=== PATIENT | female | born 1955 | race Caucasian/White ===

== ENCOUNTER → 2017-07-15 | Day surgery (SDC) | payer OTHER ==
[~2017-07-15] MED LIST: Dexamethasone 4 MG/ML 5 ML MDV ONE; Enalapril 5 MG Tab PO SCH; HYDROmorphone 2 MG Tab PO PRN; Iopamidol 408 MG/ML 50 ML SDV ONE; Ketorolac 30 MG/ML SDV ONE; Lactated Ringers 1,000 ML IV SCH; Midazolam 1 MG/ML 2 ML SDV ONE; Ondansetron 4 MG/2 ML SDV ONE; Propofol 200 MG/20 ML SDV ONE; Rocuronium 10 MG/ML 10 ML Syringe ONE; Sertraline 50 MG Tab PO SCH; Sodium Chloride 0.9% 10 ML Syringe FLUSH PRN; Sodium Chloride 0.9% 2.5 ML Syringe FLUSH PRN; Succinylcholine/Normal Saline 200 MG/10 ML Syringe ONE; buPROPion 150 MG Tab.SR PO SCH; cefTRIAXone 1 GM in Premix Bag 1 BAG IV SCH; diphenhydrAMINE 50 MG/ML SDV ONE; fentaNYL 100 MCG/2 ML SDV ONE
--- NOTE | 2017-08-06 16:06 | PCM.PREANE ---
Preanesthetic Assessment - Anesthesia/Transfusion/Family Hx Anesthesia History: Prior Anesthesia Without Reaction Family History of Anesthesia Reaction: No Intubation History: Unknown - Review of Systems Other: Reports: None - Physical Assessment NPO Status Date: 08/06/17 NPO Status Time: 14:30 (sip of Mt Dew food at 0830) ASA Class: 2E Mental Status: Alert & Oriented x3 Airway Class: Mallampati = 1 Dentition: Reports: Normal Dentition, Partial (front tooth) Thyro-Mental Finger Breadths: 3 Mouth Opening Finger Breadths: 3 ROM/Head Extension: Full - Allergies Allergies/Adverse Reactions: Allergies Allergy/AdvReac Type Severity Reaction Status Date / Time indomethacin Allergy Rash Verified 08/06/17 15:56 meloxicam Allergy Rash Verified 08/06/17 15:55 methocarbamol Allergy Rash Verified 08/06/17 15:55 orphenadrine Allergy Shaking Verified 08/06/17 15:56 - Blood Blood Available: No - Acknowledgements Anesthesia Type Planned: General Anesthesia Pt an Appropriate Candidate for the Planned Anesthesia: Yes Alternatives and Risks of Anesthesia Discussed w Pt/Guardian: Yes Pt/Guardian Understands and Agrees with Anesthesia Plan: Yes PreAnesthesia Questionnaire Cardiovascular History: Reports: High Cholesterol, Hypertension Gastrointestinal History: Reports: GERD Psychiatric History: Reports: Anxiety, Depression Other Psychiatric History: claustrophobia Other Dermatologic History: skin lupus - Past Surgical History Female Surgical History: Reports: Section (x3), Tubal Ligation Neurological Surgical History: Reports: Lumbar Spine Musculoskeletal Surgical History: Reports: Knee Replacement (Left) - SUBSTANCE USE Smoking Status *Q: Former Smoker (quit 1 yr ago smoked for "many years") Tobacco Use Within Last Twelve Months: Cigarettes Second Hand Smoke Exposure: No Days Per Week of Alcohol Use: 0 Recreational Drug Use History: No - HOME MEDS Home Medications: Home Meds Sertraline [Zoloft] 100 mg PO DAILY 07/17/14 [History] buPROPion [Wellbutrin XL] 300 mg PO DAILY 07/17/14 [History] Enalapril Maleate [Enalapril Maleate] 5 mg PO DAILY 08/06/17 [History] - CURRENT (IN HOUSE) MEDS Current Meds: Current Medications Ceftriaxone Sodium/Dextrose 1 (gm/ Premix) 50 mls @ 100 mls/hr IV ONETIME SHERWIN Lactated Ringer's (Ringers, Lactated) 1,000 mls @ 50 mls/hr IV ASDIRECTED SHERWIN Tobramycin 120 mg/ Sodium (Chloride) 53 mls @ 106 mls/hr IV Q12H SHERWIN Sodium Chloride (Saline Flush) 10 ml FLUSH ASDIRECTED PRN PRN Reason: Keep Vein Open Sodium Chloride (Saline Flush) 2.5 ml FLUSH ASDIRECTED PRN PRN Reason: Keep Vein Open
--- NOTE | 2017-08-06 18:40 | PCM.POSTAN ---
POST ANESTHESIA ASSESSMENT - MENTAL STATUS Mental Status: Alert, Oriented - RESPIRATORY Respiratory Status: Respiratory Rate WNL, Airway Patent, O2 Saturation Stable - CARDIOVASCULAR CV Status: Pulse Rate WNL, Blood Pressure Stable - GASTROINTESTINAL GI Status: No Symptoms - PAIN Pain Score: 0 - POST OP HYDRATION Hydration Status: Adequate & Stable
--- NOTE | 2017-08-06 22:16 | PCM48HPAN ---
Post Anesthesia Note - EVALUATION WITHIN 48HRS OF ANESTHETIC Vital Signs in Normal Range: Yes Patient Participated in Evaluation: Yes Respiratory Function Stable: Yes Airway Patent: Yes Cardiovascular Function Stable: Yes Hydration Status Stable: Yes Pain Control Satisfactory: Yes Nausea and Vomiting Control Satisfactory: Yes Mental Status Recovered: Yes
--- NOTE | 2017-08-06 22:52 | OR ---
SURGEON: Ryan Saul M.D. DATE OF PROCEDURE: 08/06/2017 PREOPERATIVE DIAGNOSIS: Obstructive right lower ureteral stones, 6 mm and 3-4 mm, with hydronephrosis and urinary tract infection. POSTOPERATIVE DIAGNOSIS: Obstructive right lower ureteral stones, 6 mm and 3-4 mm, with hydronephrosis and urinary tract infection. PROCEDURE: Ureteroscopy, stones removal, and double-J stent placement. DESCRIPTION OF PROCEDURE: The patient was given general anesthesia, placed in dorsal lithotomy position, prepped and draped in sterile drapes. Cystourethroscopy was done. The bladder had the appearance of acute cystitis. The patient had already received both Rocephin and tobramycin on arrival 3 hours prior to the procedure. The guidewire was then advanced in the right ureter alongside the stone all the way up into the renal pelvis. The lower ureter was dilated using the UroMax II balloon dilator to approximately 15-Czech. The Zero-tip basket was used to extract both stones. With that done, a 7-Czech 26 centimeter double-J stent was placed over the guidewire. The guidewire was removed. The bladder was emptied, and the string at the end of the stent was taped to the outside of the penis. TRUONG / RICCI /[id number]
--- NOTE | 2017-08-08 06:24 | DISCH ---
DATE OF DISCHARGE: 08/07/2017 PRIMARY CARE PHYSICIAN: None PCP HISTORY/HOSPITAL COURSE: The patient is a 61-year-old. She was seen through the emergency room with sudden onset of right flank pain. She had a UA that was strongly suggestive of UTI. Urine culture is pending. She had a white blood count that was normal. A CT scan that showed two obstructive stones in the right lower ureter. She was admitted to the hospital, started on IV antibiotics, received both Rocephin and tobramycin, was taken to the operating room where she underwent ureteroscopy and removal of stones plus double-J stent placement. She was kept in overnight for additional IV antibiotics and was sent home on the first postop day which is 08/07/2017. At the time of discharge, her vital signs are stable. She is afebrile. She is doing well. She will come to the office this coming Saturday to have her double-J stent removed by pulling the string out. TRUONG WYNNE /[id number]
--- NOTE | 2017-08-08 10:25 | CR ---
EXAMINATION: Ureteroscopy HISTORY: Nephrolithiasis COMPARISON: Same day TECHNIQUE: 3 fluoroscopic images provided FINDINGS/IMPRESSION: Operative control films demonstrate placement of a right nephroureteral stent.
== END ==
LOC: EDSTATUS 12:53 → MW.SDS 15:24 → INTOOBSV 08-06 15:24 → MW.MS 08-06 15:24 → MW.ICU 08-06 15:24 → UNDOADMOB 08-06 15:24 → MW.OBCHECK 08-06 15:24 → UNDODISOB 08-07 11:15 → EDSTATUS 08-20 15:20
PROVIDERS: ATTEND Urology
DX: N13.6 Pyonephrosis (principal); E78.00 Pure hypercholesterolemia, unspecified; I10 Essential (primary) hypertension; K21.9 Gastro-esophageal reflux disease without esophagitis; F41.9 Anxiety disorder, unspecified; F32.9 Major depressive disorder, single episode, unspecified; F40.240 Claustrophobia; L93.1 Subacute cutaneous lupus erythematosus; Z98.51 Tubal ligation status; Z88.1 Allergy status to other antibiotic agents; Z88.8 Allergy status to other drugs, medicaments and biological substances; Z96.652 Presence of left artificial knee joint; Z87.891 Personal history of nicotine dependence; Z79.899 Other long term (current) drug therapy; N13.2 Hydronephrosis with renal and ureteral calculous obstruction; N39.0 Urinary tract infection, site not specified
CPT/HCPCS: 00910; 36415; 74176; 74176-26; 76000; 76000-26; 80053; 81001; 85025; 96361; 96374; 96375; 99284; 99284-25; A9270-GY; C1874; J0696; J1100; J1200; J1885; J2250; J2270; J2405; J2704; J3010; J3260; J7040; J7050; J7120; Q9966

== ENCOUNTER 2017-08-06 11:49 | Emergency (ER) | payer BC, OTHER ==
[2017-08-06] MEDS ORDERED: Sodium Chloride 0.9% 10 ML Syringe FLUSH PRN (12:24)
[2017-08-06] MEDS ORDERED: Morphine 2 MG/ML Syringe IVPUSH ONE (12:24)
[2017-08-06] MEDS ORDERED: Ondansetron 4 MG/2 ML SDV IVPUSH ONE (12:24)
[2017-08-06] MEDS ORDERED: Sodium Chloride 0.9% 2.5 ML Syringe FLUSH PRN (12:24)
[2017-08-06] MEDS ORDERED: Ketorolac 30 MG/ML SDV IVPUSH ONE (12:24)
[2017-08-06] MEDS ORDERED: Sodium Chloride 0.9% 1,000 ML IV ONE ×2 (12:24)
--- NOTE | 2017-08-06 12:27 | EDM.PDOC ---
ED HPI GENERAL MEDICAL PROBLEM - General Chief Complaint: Flank Pain Stated Complaint: BACK PAIN Time Seen by Provider: 08/06/17 12:27 Source of Information: Reports: Patient History Limitations: Reports: No Limitations - History of Present Illness INITIAL COMMENTS - FREE TEXT/NARRATIVE: HISTORY AND PHYSICAL: []61-year-old female presents with flank and back pain She has history of having renal stones in the past History of Present Illness: []Pain is rated as 9/10 Patient has had a tubal ligation in the past Review of Systems: As per history of present illness and below otherwise all systems reviewed and negative. Past medical history: As per history of present illness and as reviewed below otherwise noncontributory. Surgical history: As per history of present illness and as reviewed below otherwise noncontributory. Social history: No reported history of drug or alcohol abuse. Family history: As per history of present illness and as reviewed below otherwise noncontributory. Physical exam: Alert and oriented female who is obviously in some pain. 3 and questions appropriately in full sentences without shortness of breath HEENT: Atraumatic, normocehpalic, pupils reactive, negative for conjunctival pallor or scleral icterus, mucous membranes moist, throat clear, neck supple, nontender, trachea midline. Lungs: Clear to auscultation, breath sounds equal bilaterally, chest non tender. Heart: S1S2, regular, negative for clicks, rubs, or JVD. Abdomen: Soft, nondistended, nontender. Negative for masses or hepatossplenmegaly. Negative for costovertebral tenderness. Pelvis: Stable nontender. Genitourinary: Deferred. Rectal: Deferred Extremities: Atraumatic, negative for cords or calf pain. Neurovascular unremarkable. Neuro: Awake, alert, oriented. Cranial nerves II through XII unremarkable. Cerebellum unremarkable. Motor and sensory unremarkable throughout. Exam nonfocal. Discussed this case with Dr. Saul local urologist, who is requesting the patient be sent to his clinic. Discussed with the patient and her that I had spoken with Dr. Saul and he wishes to see her at the clinic now. Diagnostics: [CBC CMP UA abdominal pelvis CT without] Therapeutics: [IV fluids morphine IV Toradol IV Zofran IV ] Impression: []2 renal stones obstructing UTI Plan: [Discharged to clinic Follow-up with Dr. Shahin today] Definitive disposition and diagnosis as appropriate pending reevaluation and review of above. Right Flank Pain Score (Numeric/FACES): 7 - Related Data Allergies Allergy/AdvReac Type Severity Reaction Status Date / Time No Known Allergies Allergy Verified 10/19/13 10:48 Home Meds: Home Meds Sertraline [Zoloft] 100 mg PO DAILY 07/17/14 [History] buPROPion [Wellbutrin XL] 300 mg PO DAILY 07/17/14 [History] Enalapril Maleate [Enalapril Maleate] 5 mg PO DAILY 08/06/17 [History] Social & Family History - Tobacco Use Smoking Status *Q: Former Smoker Years of Tobacco use: 40 Used Tobacco, but Quit: Yes Month Tobacco Last Used: - Alcohol Use Days Per Week of Alcohol Use: 0 - Recreational Drug Use Recreational Drug Use: No ED ROS GENERAL - Review of Systems Review Of Systems: ROS reveals no pertinent complaints other than HPI. ED EXAM, GI/ABD - Physical Exam Exam: See Below (see dictation) Course - Vital Signs Last Recorded V/S: Last Vital Signs Temp 35.1 C L 08/06/17 12:16 Pulse 89 08/06/17 12:16 Resp 18 08/06/17 12:16 BP 131/74 08/06/17 12:16 Pulse Ox 100 08/06/17 12:16 - Orders/Labs/Meds Orders: Active Orders 24 hr Category Date Time Status Sodium Chloride 0.9% [Saline Flush] Med 08/06/17 12:24 Active 10 ml FLUSH ASDIRECTED PRN Sodium Chloride 0.9% [Saline Flush] Med 08/06/17 12:24 Active 2.5 ml FLUSH ASDIRECTED PRN Saline Lock Insert [OM.PC] Stat Oth 08/06/17 12:25 Ordered Medication Orders Sodium Chloride (Saline Flush) 10 ml FLUSH ASDIRECTED PRN PRN Reason: Keep Vein Open Last Admin: 08/06/17 12:31 Dose: 10 ml Sodium Chloride (Saline Flush) 2.5 ml FLUSH ASDIRECTED PRN PRN Reason: Keep Vein Open Last Admin: 08/06/17 12:31 Dose: 2.5 ml Labs: Laboratory Tests 08/06/17 08/06/17 08/06/17 Range/Units 12:20 12:20 12:20 WBC 10.02 (4.0-11.0) K/uL RBC 4.81 (4.30-5.90) M/uL Hgb 14.6 (12.0-16.0) g/dL Hct 44.0 (36.0-46.0) % MCV 91.5 (80.0-98.0) fL MCH 30.4 (27.0-32.0) pg MCHC 33.2 (31.0-37.0) g/dL RDW Std Deviation 48.2 (28.0-62.0) fl RDW Coeff of Esther 14 (11.0-15.0) % Plt Count 218 (150-400) K/uL MPV 10.00 (7.40-12.00) fL Add Manual Diff YES Neutrophils % (Manual) 82 H (48.0-80.0) % Lymphocytes % (Manual) 14 L (16.0-40.0) % Monocytes % (Manual) 4 (0.0-15.0) % Nucleated RBC % 0.0 /100WBC Absolute Seg Neuts 8.2 H (1.4-5.7) Lymphocytes # (Manual) 1.4 (0.6-2.4) Monocytes # (Manual) 0.4 (0.0-0.8) Nucleated RBCs # 0 K/uL Sodium 139 (136-146) mmol/L Potassium 4.1 (3.5-5.1) mmol/L Chloride 106 (98-110) mmol/L Carbon Dioxide 22 (21-31) mmol/L BUN 17 (6.0-23.0) mg/dL Creatinine 1.0 (0.6-1.5) mg/dL Est Cr Clr Drug Dosing 45.71 mL/min Estimated GFR (MDRD) 56.7 ml/min Glucose 102 (60-110) mg/dL Calcium 9.8 (8.8-10.8) mg/dL Total Bilirubin 0.5 (0.1-1.5) mg/dL AST 15 (5-40) IU/L ALT 20 (8-54) IU/L Alkaline Phosphatase 89 (40-150) Total Protein 7.2 (6.0-8.0) g/dL Albumin 4.3 (3.5-5.0) g/dL Globulin 2.9 (2.0-3.5) g/dL Albumin/Globulin Ratio 1.5 (1.3-2.8) Urine Color YELLOW Urine Appearance CLEAR Urine pH 6.5 (5.0-8.0) Ur Specific [place] 1.020 (1.001-1.035) Urine Protein 30 (NEGATIVE) mg/dL Urine Glucose (UA) NEGATIVE (NEGATIVE) mg/dL Urine Ketones NEGATIVE (NEGATIVE) mg/dL Urine Occult Blood LARGE H (NEGATIVE) Urine Nitrite POSITIVE H (NEGATIVE) Urine Bilirubin NEGATIVE (NEGATIVE) Urine Urobilinogen 0.2 (<2.0) EU/dL Ur Leukocyte Esterase LARGE (NEGATIVE) Urine RBC 5-7 (0-2/HPF) Urine WBC TO NUMEROUS TO COUNT H (0-5/HPF) Ur Epithelial Cells OCCASIONAL (NONE-FEW) Urine Bacteria 4+ H (NEGATIVE) Meds: Medications Generic Name Dose Route Start Last Admin Trade Name Tamara PRN Reason Stop Dose Admin Sodium Chloride 10 ml 08/06/17 12:24 08/06/17 12:31 Saline Flush FLUSH 10 ml ASDIRECTED PRN Administration Keep Vein Open Sodium Chloride 2.5 ml 08/06/17 12:24 08/06/17 12:31 Saline Flush FLUSH 2.5 ml ASDIRECTED PRN Administration Keep Vein Open Discontinued Medications Generic Name Dose Route Start Last Admin Trade Name Tamara PRN Reason Stop Dose Admin Sodium Chloride 1,000 mls @ 999 mls/hr 08/06/17 12:24 08/06/17 12:29 Normal Saline IV 08/06/17 13:24 999 mls/hr STAT ONE Administration Sodium Chloride 1,000 mls @ 999 mls/hr 08/06/17 12:24 08/06/17 13:47 Normal Saline IV 08/06/17 13:24 999 mls/hr STAT ONE Administration Ketorolac Tromethamine 30 mg 08/06/17 12:24 08/06/17 12:30 Toradol IVPUSH 08/06/17 12:25 30 mg ONETIME ONE Administration Morphine Sulfate 2 mg 08/06/17 12:24 08/06/17 12:30 Morphine IVPUSH 08/06/17 12:25 2 mg ONETIME ONE Administration Ondansetron HCl 4 mg 08/06/17 12:24 08/06/17 12:30 Zofran IVPUSH 08/06/17 12:25 4 mg ONETIME ONE Administration Departure - Departure Time of Disposition: 13:52 Disposition: Home, Self-Care 01 Condition: Good Clinical Impression: UTI, Urinary tract infectious disease, Kidney stone - Discharge Information Instructions: Kidney Stones, [id number], Flank Pain, [id number] Referrals: PCP,None [Primary Care Provider] - Forms: ED Department Discharge Additional Instructions: The following information is given to patients seen in the emergency department who are being discharged to home. This information is to outline your options for follow-up care. We provide all patients seen in our emergency department with a follow-up referral. The need for follow-up, as well as the timing and circumstances, are variable depending upon the specifics of your emergency department visit. If you don't have a primary care physician on staff, we will provide you with a referral. We always advise you to contact your personal physician following an emergency department visit to inform them of the circumstance of the visit and for follow-up with them and/or the need for any referrals to a consulting specialist. The emergency department will also refer you to a specialist when appropriate. This referral assures that you have the opportunity for followup care with a specialist. All of these measure are taken in an effort to provide you with optimal care, which includes your followup. Under all circumstances we always encourage you to contact your private physician who remains a resource for coordinating your care. When calling for followup care, please make the office aware that this follow-up is from your recent emergency room visit. If for any reason you are refused follow-up, please contact the [facility] emergency department at and asked to speak to the emergency department charge nurse. Please present to the clinic for Dr. Saul to see you - My Orders Last 24 Hours: My Active Orders 08/06/17 12:24 Sodium Chloride 0.9% [Saline Flush] 10 ml FLUSH ASDIRECTED PRN Sodium Chloride 0.9% [Saline Flush] 2.5 ml FLUSH ASDIRECTED PRN 08/06/17 12:25 Saline Lock Insert [OM.PC] Stat - Assessment/Plan Last 24 Hours: My Active Orders 08/06/17 12:24 Sodium Chloride 0.9% [Saline Flush] 10 ml FLUSH ASDIRECTED PRN Sodium Chloride 0.9% [Saline Flush] 2.5 ml FLUSH ASDIRECTED PRN 08/06/17 12:25 Saline Lock Insert [OM.PC] Stat
--- NOTE | 2017-08-06 13:43 | CT ---
CT of the abdomen and pelvis without contrast. HISTORY: Pain TECHNIQUE: Axial CT images were obtained of the abdomen and pelvis without contrast. Coronal and sagi ttal reconstructions obtained. FINDINGS: The lung bases are clear, no pleural effusion. Calcified granuloma within the right lung base. The liver, spleen, adrenal glands, and pancreas appear unremarkable for noncontrast examination. The gallbladder appears normal. There is no bulky retroperitoneal lymphadenopathy. No abdominal ascites. There is a 5 x 6 mm obstructing stone within the distal left ureter near the ureterovesicular junctio n. There is a smaller more proximal stone noted. There is moderate right-sided hydronephrosis with mu ltiple nonobstructing nephrolithiasis bilaterally. Peripelvic cysts noted within the left kidney. The large and small bowel are normal in caliber without evidence of obstruction. The appendix appears normal. Diverticulosis without evidence of diverticulitis. There is no bulky pelvic lymphadenopathy. No free fluid. No free air. The urinary bladder appears normal. Bilateral posterior fusion hardware noted at L4-L5 with grade 1 anterolisthesis. No suspicious osseou s abnormalities identified. IMPRESSION: 1. There are 2 obstructing stones within the distal right ureter, measuring up to 5 x 6 mm, with mode rate proximal hydronephrosis. 2. Nonobstructing nephrolithiasis bilaterally. 3. Mild diverticulosis without evidence of diverticulitis.
== END 2017-08-06 14:12 | disposition home or self-care (01) ==
LOC: MW.ED 11:49
DX: N13.2 Hydronephrosis with renal and ureteral calculous obstruction (principal); N39.0 Urinary tract infection, site not specified; Z79.899 Other long term (current) drug therapy; Z87.891 Personal history of nicotine dependence
CPT/HCPCS: 36415; 74176; 80053; 81001; 85025; 96361; 96374; 96375; 99284; J1885; J2270; J2405; J7040

== ENCOUNTER 2019-09-08 11:16 | Emergency (ER) | payer OTHER ==
[2019-09-08] MEDS ORDERED: Acetaminophen/oxyCODONE 325-5 MG Tab PO ONE ×2 (11:29→13:05)
[2019-09-08] MEDS ORDERED: Ibuprofen 800 MG Tab PO ONE (11:31)
--- NOTE | 2019-09-08 12:38 | CR ---
Right shoulder: 2 views of the right shoulder obtained. Comparison: No prior shoulder exam. Anterior subcoracoid dislocation is noted. Osteopenia seen. Degenerative change is noted within the cervical spine. Impression: 1. Dislocated right shoulder. 2. Other findings as noted above. Diagnostic code #3 This report was dictated in [place] Standard Time
--- NOTE | 2019-09-08 12:38 | CR ---
Right humerus: Single view of the right humerus was obtained. No discrete fracture or other abnormality is seen within the humerus. Dislocated shoulder is again noted. Impression: 1. Dislocated right shoulder. No additional abnormality is appreciated on single right humerus study. Diagnostic code #2 This report was dictated in [place] Standard Time
[2019-09-08] MEDS ORDERED: Lidocaine 1% 10 ML MDV INJECT ONE (12:52)
[2019-09-08] MEDS ORDERED: Lidocaine 1% 50 ML MDV ONE (13:05)
[2019-09-08] MEDS ORDERED: Diazepam 5 MG Tab PO ONE (13:06)
--- NOTE | 2019-09-08 14:08 | CR ---
Right shoulder: Single AP view of the right shoulder was obtained. Comparison: Previous shoulder study performed earlier on the same day (12:04 PM). Previous dislocation has been reduced. No additional abnormality is seen on this 1 view study. Impression: 1. Reduced right shoulder dislocation. Diagnostic code #1 This report was dictated in [place] Standard Time
--- NOTE | 2019-09-08 14:44 | EDM.PDOC ---
ED HPI GENERAL MEDICAL PROBLEM - General Chief Complaint: Upper Extremity Injury/Pain Stated Complaint: AMBULANCE Time Seen by Provider: 09/08/19 11:21 Right Upper Arm Pain Score (Numeric/FACES): 10 - Related Data Allergies Allergy/AdvReac Type Severity Reaction Status Date / Time indomethacin Allergy Rash Verified 09/08/19 11:24 meloxicam Allergy Rash Verified 09/08/19 11:24 methocarbamol Allergy Rash Verified 09/08/19 11:24 orphenadrine Allergy Shaking Verified 09/08/19 11:24 Home Meds: Home Meds Sertraline [Zoloft] 100 mg PO DAILY 07/17/14 [History] buPROPion [Wellbutrin XL] 300 mg PO DAILY 07/17/14 [History] Enalapril Maleate 5 mg PO DAILY 08/06/17 [History] Aspirin 81 mg PO DAILY 09/08/19 [History] Past Medical History HEENT History: Reports: None Cardiovascular History: Reports: High Cholesterol, Hypertension Respiratory History: Reports: None Gastrointestinal History: Reports: GERD Genitourinary History: Reports: None 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: Neurological History: Reports: None Psychiatric History: Reports: Anxiety, Depression Other Psychiatric History: claustrophobia Endocrine/Metabolic History: Reports: None Hematologic History: Reports: None Immunologic History: Reports: None Oncologic (Cancer) History: Reports: None Other Dermatologic History: skin lupus - Infectious Disease History Infectious Disease History: Reports: None - Past Surgical History Head Surgeries/Procedures: Reports: None Female Surgical History: Reports: Section, Tubal Ligation Neurological Surgical History: Reports: Lumbar Spine Musculoskeletal Surgical History: Reports: Knee Replacement Social & Family History - Family History Family Medical History: Noncontributory - Tobacco Use Smoking Status *Q: Former Smoker Used Tobacco, but Quit: Yes Month/Year Tobacco Last Used: 2015 - Caffeine Use Caffeine Use: Reports: Coffee, Soda - Recreational Drug Use Recreational Drug Use: No Review of Systems - Review of Systems Review Of Systems: See Below ED EXAM, GENERAL - Physical Exam Exam: See Below Free Text/Narrative:: intact sensation over the right deltoid region, intact sensation in the right upper extremity strength intact at the wrist and digits (r) General Appearance: Alert, No Apparent Distress Nose: Normal Inspection Throat/Mouth: Normal Inspection Head: Atraumatic, Normocephalic Neck: Supple, Non-Tender, Full Range of Motion Respiratory/Chest: Lungs Clear, Normal Breath Sounds, No Accessory Muscle Use Cardiovascular: Normal Peripheral Pulses, Regular Rate, Rhythm, No Edema, No JVD , No Murmur, No Rub Peripheral Pulses: 3+: Radial (L), Radial (R) (Female) Exam: Deferred Rectal (Female) Exam: Deferred Back Exam: Normal Inspection, Full Range of Motion. No: Vertebral Tenderness Extremities: Normal Inspection, Other (tender to palpation over the shoulder, limited rom due to pain) ED TRAUMA EXTREMITY PROCEDURES - Joint Reduction Right Shoulder Sedation: Hematoma/Fracture Block Local Anesthesia - Lidocaine (Xylocaine): 1% Plain Local Anesthetic Volume: Other (10cc) Pre-Procedure NV Status: Normal Post-Procedure NV Status: Normal Technique: Other (external rotation ) Number of Attempts: 1 Post-Reduction Imaging: Completely Reduced Joint Reduction Complications: Yes Course - Vital Signs Last Recorded V/S: Last Vital Signs Temp 96.0 F L 09/08/19 11:22 Pulse 65 09/08/19 15:30 Resp 15 09/08/19 15:30 BP 95/56 L 09/08/19 15:30 Pulse Ox 97 09/08/19 15:30 - Orders/Labs/Meds Meds: Medications Discontinued Medications Generic Name Dose Route Start Last Admin Trade Name Tamara PRN Reason Stop Dose Admin Diazepam 5 mg 09/08/19 13:06 09/08/19 13:15 Valium. PO 09/08/19 13:07 5 mg ONETIME ONE Administration Ibuprofen 800 mg 09/08/19 11:31 09/08/19 12:22 Motrin PO 09/08/19 11:32 800 mg ONETIME ONE Administration Lidocaine HCl 10 ml 09/08/19 12:52 09/08/19 15:28 Xylocaine 1% INJECT 09/08/19 12:53 10 ml ONETIME ONE Administration Lidocaine HCl Confirm 09/08/19 13:05 09/08/19 15:28 Xylocaine 1% Administered 09/08/19 13:06 Not Given Dose 50 ml .ROUTE .STK-MED ONE Oxycodone/Acetaminophen 1 tab 09/08/19 11:29 09/08/19 12:23 Percocet 325-5 Mg PO 09/08/19 11:30 1 tab ONETIME ONE Administration Oxycodone/Acetaminophen 1 tab 09/08/19 13:05 09/08/19 13:14 Percocet 325-5 Mg PO 09/08/19 13:06 1 tab ONETIME ONE Administration - Re-Assessments/Exams Free Text/Narrative Re-Assessment/Exam: 09/08/19 15:41 Shoulder was relocated without any immediate complications confirmed via x-ray. Was a little extra sleepy after the Valium and Percocet now she is fully arousable without hypoxia or any distress. She will follow-up with Ortho as an outpatient she will wear the sling for no more than two to three weeks. return precautions discussed with the patient. acetaminophen as needed for pain. Full strength and sensation in the RUE after reduction (elbow strength intact, wrist strngth intact, fnger strength intact- snesation intact throughout including deltoid 09/08/19 15:48 Departure - Departure Time of Disposition: 15:44 Disposition: Home, Self-Care 01 Clinical Impression: Shoulder dislocation - Discharge Information *PRESCRIPTION DRUG MONITORING PROGRAM REVIEWED*: Not Applicable *COPY OF PRESCRIPTION DRUG MONITORING REPORT IN PATIENT KG: Not Applicable Instructions: Shoulder Dislocation Referrals: PCP,None [Primary Care Provider] - Forms: ED Department Discharge Additional Instructions: Turn to ED if you develop unbearable pain cannot move the arm weakness numbness or any concerns Follow-up with orthopedics The following information is given to patients seen in the emergency department who are being discharged to home. This information is to outline your options for follow-up care. We provide all patients seen in our emergency department with a follow-up referral. The need for follow-up, as well as the timing and circumstances, are variable depending upon the specifics of your emergency department visit. If you don't have a primary care physician on staff, we will provide you with a referral. We always advise you to contact your personal physician following an emergency department visit to inform them of the circumstance of the visit and for follow-up with them and/or the need for any referrals to a consulting specialist. The emergency department will also refer you to a specialist when appropriate. This referral assures that you have the opportunity for follow-up care with a specialist. All of these measure are taken in an effort to provide you with optimal care, which includes your follow-up. Under all circumstances we always encourage you to contact your private physician who remains a resource for coordinating your care. When calling for follow-up care, please make the office aware that this follow-up is from your recent emergency room visit. If for any reason you are refused follow-up, please contact the [facility] Emergency Department at and asked to speak to the emergency department charge nurse. [facility] [address], [address] [place] [address] Sepsis Event Note - Evaluation Sepsis Screening Result: No Definite Risk - Focused Exam Vital Signs: Vital Signs Temp Pulse Resp BP Pulse Ox 09/08/19 15:30 65 15 95/56 L 97 09/08/19 14:50 56 L 15 102/54 L 98 09/08/19 14:20 55 L 16 101/63 95 09/08/19 13:35 62 18 118/68 98 09/08/19 11:22 96.0 F L 57 L 22 H 144/68 H 97 Date Exam was Performed: 09/08/19 Time Exam was Performed: 15:44
== END 2019-09-08 16:13 | disposition home or self-care (01) ==
LOC: MW.ED 11:16
DX: S43.004A Unspecified dislocation of right shoulder joint, initial encounter (principal); I10 Essential (primary) hypertension; Z87.891 Personal history of nicotine dependence; Z88.8 Allergy status to other drugs, medicaments and biological substances; Z79.82 Long term (current) use of aspirin; X58.XXXA Exposure to other specified factors, initial encounter
CPT/HCPCS: 23650; 73020; 73030; 73060; 99284; A9270; J2001; 99281

== ENCOUNTER 2023-01-24 14:52 | Emergency (ER) | payer MEDICARE, BC | END 2023-01-24 17:17 | disposition home or self-care (01) | LOC: MW.ED 14:52 | DX: M71.21 Synovial cyst of popliteal space [Baker], right knee (principal); I10 Essential (primary) hypertension; Z88.8 Allergy status to other drugs, medicaments and biological substances; Z88.6 Allergy status to analgesic agent; Z79.899 Other long term (current) drug therapy | CPT/HCPCS: 93971-26-RT; 93971-RT; 99283 ==

== ENCOUNTER 2024-06-12 21:16 | Emergency (ER) | payer MEDICARE, BC ==
[2024-06-12] MEDS: Sodium Chloride 0.9% 1,000 ML IV ONE (23:01)
[2024-06-12] MEDS: Ketorolac 30 MG/ML SDV IM ONE (23:02)
[2024-06-12] MEDS: Ondansetron 4 MG/2 ML SDV IVPUSH ONE (23:02)
[2024-06-12 23:07] LABS: BASOPHILS ABSOLUTE AUTO 0.04 K/uL (0.00-0.20); BASOPHILS PERCENT AUTO 0.4 % (0.0-1.0); EOSINOPHILS ABSOLUTE AUTO 0.02 K/uL (0.00-0.45); EOSINOPHILS PERCENT AUTO 0.2 % (0.0-6.0); HEMATOCRIT 41.5 % (37.0-47.0); HEMOGLOBIN 13.9 g/dL (12.0-16.0); IMMATURE GRAN ABSOLUTE AUTO 0.04 K/uL (0.00-0.05); IMMATURE GRAN PERCENT AUTO 0.4 % (0.0-0.4); LYMPHOCYTES ABSOLUTE AUTO 0.97 K/uL (1.00-4.80); LYMPHOCYTES PERCENT AUTO 10.6 % (24.0-44.0); MEAN CORPUSCULAR HEMOGLOBIN 30.3 pg (28.0-32.0); MEAN CORPUSCULAR HGB CONC 33.5 g/dL (32.0-36.0); MEAN CORPUSCULAR VOLUME 90.4 fL (83.0-99.0); MEAN PLATELET VOLUME 9.6 fL (9.4-12.3); MONOCYTES ABSOLUTE AUTO 0.64 K/uL (0.00-0.80); NEUTROPHILS PERCENT AUTO 81.4 % (41.0-71.0); PLATELET COUNT,PLT 214 K/uL (150-400); RED BLOOD CELL COUNT 4.59 M/uL (4.10-5.30); WHITE BLOOD CELL COUNT,WBC 9.11 K/uL (3.9-11.3)
[2024-06-12 23:39] LABS: A/G RATIO 1.3 (0.9-1.6); ALANINE AMINOTRANSFERASE,ALT 34 IU/L (14-63); ALBUMIN 3.9 g/dL (3.4-5.0); ALKALINE PHOSPHATASE 67 U/L (46-116); ASPARTATE AMNIOTRANSFERASE,AST 24 IU/L (15-37); BILIRUBIN TOTAL 0.4 mg/dL (0.2-1.0); BLOOD UREA NITROGEN,BUN 10 mg/dL (7.0-18.0); CALCIUM 9.5 mg/dL (8.5-10.1); CHLORIDE,CL 106 mmol/L (98-107); CREATININE 0.9 mg/dL (0.6-1.0); ESTIMATED GFR 71 mL/min (>60); GLUCOSE RANDOM 121 mg/dL (74-106); LIPASE 26 U/L (16-77); POTASSIUM,K 2.9 mmol/L (3.5-5.1); PROTEIN TOTAL,TP 6.9 g/dL (6.4-8.2); SODIUM,NA 144 mmol/L (136-145)
[2024-06-12 23:42] LABS: BILIRUBIN,URINE NEGATIVE (NEGATIVE); COLOR,URINE YELLOW; GLUCOSE,URINE NEGATIVE (NEGATIVE); KETONES,URINE TRACE mg/dL (NEGATIVE); LEUKOCYTE ESTERASE,URINE NEGATIVE (NEGATIVE); NITRITE,URINE NEGATIVE (NEGATIVE); OCCULT BLOOD,URINE MODERATE (NEGATIVE); PROTEIN,URINE NEGATIVE (NEGATIVE); UROBILINOGEN,URINE 0.2 EU/dL (<2.0)
[2024-06-12 23:45] LABS: APPEARANCE,URINE HAZY
[2024-06-12 23:54] LABS: BACTERIA,URINE RARE (NEGATIVE); CALCIUM OXALATE CRYSTALS,URINE OCCASIONAL (NEGATIVE); EPITHELIAL CELLS,URINE FEW (NONE-FEW); MUCUS,URINE LIGHT (NONE-MOD); RBC,URINE 20-25 (0-2/HPF); WBC,URINE 0-2 (0-5/HPF)
[2024-06-13] MEDS ORDERED: Naloxone 0.4 MG/ML SDV IVPUSH PRN (00:04)
[2024-06-13] MEDS: Potassium Chloride 20 MEQ Tab.ER PO ONE (00:17)
[2024-06-13] MEDS: Morphine 2 MG/ML SYRINGE IM ONE (00:18)
== END 2024-06-13 00:23 | disposition left against medical advice (07) ==
LOC: MW.ED 21:16
DX: N13.2 Hydronephrosis with renal and ureteral calculous obstruction (principal); I10 Essential (primary) hypertension; E78.00 Pure hypercholesterolemia, unspecified; Z96.659 Presence of unspecified artificial knee joint; Z88.8 Allergy status to other drugs, medicaments and biological substances; Z79.899 Other long term (current) drug therapy
CPT/HCPCS: 36415; 74176; 80053; 81001; 83690; 85025; 96361; 96372; 96374; 99284; A9270; J1885; J2270; J2405; J7030

== ENCOUNTER 2024-10-14 01:13 | Emergency (ER) | payer BC, MEDICARE ==
[2024-10-14] MEDS: Acetaminophen/oxyCODONE 325-5 MG Tab PO ONE (01:34)
== END 2024-10-14 03:20 | disposition home or self-care (01) ==
LOC: MW.ED 01:13
DX: G56.01 Carpal tunnel syndrome, right upper limb (principal); I10 Essential (primary) hypertension; E78.00 Pure hypercholesterolemia, unspecified; Z88.8 Allergy status to other drugs, medicaments and biological substances; Z79.899 Other long term (current) drug therapy
CPT/HCPCS: 93971; 99283; A9270

== ENCOUNTER 2025-04-26 19:19 | Emergency (ER) | payer BC, MEDICARE ==
[2025-04-26] MEDS: Ondansetron 4 MG Tab.DIS PO ONE (20:38)
== END 2025-04-26 20:55 | disposition home or self-care (01) ==
LOC: MW.ED 19:19
DX: S42.255A Nondisplaced fracture of greater tuberosity of left humerus, initial encounter for closed fracture (principal); I10 Essential (primary) hypertension; K21.9 Gastro-esophageal reflux disease without esophagitis; E78.00 Pure hypercholesterolemia, unspecified; Z88.1 Allergy status to other antibiotic agents; Z88.8 Allergy status to other drugs, medicaments and biological substances; Z79.899 Other long term (current) drug therapy; W01.0XXA Fall on same level from slipping, tripping and stumbling without subsequent striking against object, initial encounter
CPT/HCPCS: 73030; 73060; 99283; A9270; 99284